=== PATIENT | male | born 1950 ===

== ENCOUNTER → 2019-01-10 | Outpatient (CLI) | payer OTHER, MEDICARE ==
[2019-01-10 16:40] LABS: ABG BASE EXCESS 0.1 MMOL/L (-2.5-2.5); ABG OXYGEN SATURATION 93 % (94-100); ABG PCO2 37 MMHG (35-45); ABG PH 7.42 (7.37-7.43); ABG PO2 69 MMHG (79-93); ABG TCO2 25.4 MMOL/L (21.0-31.0)
[2019-01-10 16:42] LABS: ALLENS TEST YES-POS; INSPIRED O2 RA; PATIENT TEMP 35.9; VENTILATOR NO
== END ==
LOC: LAB 16:04
PROVIDERS: ATTEND Nurse Practitioner Family
DX: J44.9 Chronic obstructive pulmonary disease, unspecified (principal); Z72.0 Tobacco use
CPT/HCPCS: 36600; 82805

== ENCOUNTER → 2019-04-01 | Outpatient (CLI) | payer MEDICARE, OTHER ==
[~2019-04-01] MED LIST: CATHETER FLUSH 10 ML SYR IV PRN; HOLD METFORMIN - RECEIVED CONTRAST 20 ML VIAL IV SCH; IOHEXOL 350 MG/ML 100 ML (OMNIPAQUE 350) VIAL IV ONE; NS 100 ML (IVPB) BAG IV ONE; RT-ALBUTEROL SULF 2.5 MG/3 ML PRE-MIX VIAL INH ONE; RT-ALBUTEROL SULF 2.5 MG/3 ML PRE-MIX VIAL ONE
[2019-04-01 11:35] LABS: BUN/CREATININE RATIO 16; CREATININE SERUM 1.05 MG/DL (0.60-1.30); GFR ESTIMATED > 60
--- NOTE | 2019-04-01 14:11 | Diagnostic Imaging Report ---
PROCEDURE: CT chest with contrast only. TECHNIQUE: Multiple contiguous axial images were obtained through the chest after administration of intravenous contrast. Auto Exposure Controls were utilized during the CT exam to meet ALARA standards for radiation dose reduction. INDICATION: Tobacco use, COPD. COMPARISON: None available. FINDINGS: No significant adenopathy within the chest. Mild scattered vascular calcifications. No aneurysmal dilatation of the thoracic aorta. The heart is within normal limits in size. No pericardial effusion. No pleural effusion. No pneumothorax. Moderate to advanced background emphysematous changes are present, greatest within the upper lobes. 1.5 cm irregular nodular density is noted within the left lung apex with additional nodularity within the left lung apex. 0.5 cm left lower lobe pulmonary nodule, axial image 32. 0.5 cm left lower lobe pulmonary nodule, axial image 44. 0.5 cm right upper lobe pulmonary nodule, axial image 37. 1.3 cm hypodensity is noted within the mid left kidney. Visualized upper abdomen is otherwise unremarkable. Scattered osseous degenerative changes without acute osseous abnormality. Large anterior osteophytes are noted throughout the spine. IMPRESSION: Advanced background emphysematous changes. Bilateral pulmonary nodules as described above, which are indeterminate. Dominant nodule within the left lung apex which is favored to relate to pleural parenchymal scarring, though follow-up is recommended. Therefore, follow-up is recommended with a CT of the chest in three months to ensure stability of the pulmonary nodularity. Left renal hypodensity, statistically, likely related to a cyst. Additional findings as above. Dictated by: Dictated on workstation # [id number]
== END ==
LOC: RT 10:53
PROVIDERS: ATTEND Nurse Practitioner Family
DX: J44.9 Chronic obstructive pulmonary disease, unspecified (principal); R91.8 Other nonspecific abnormal finding of lung field; Z72.0 Tobacco use
CPT/HCPCS: 36415; 71260; 82565; 84520; 94060; 94726; 94729

== ENCOUNTER → 2019-07-27 | Outpatient (CLI) | payer OTHER, MEDICARE ==
[~2019-07-27] MED LIST changes: -RT-ALBUTEROL SULF 2.5 MG/3 ML PRE-MIX VIAL INH ONE; -RT-ALBUTEROL SULF 2.5 MG/3 ML PRE-MIX VIAL ONE
[2019-07-27 15:27] LABS: BUN/CREATININE RATIO 18; CREATININE SERUM 1.01 MG/DL (0.60-1.30); GFR ESTIMATED > 60
--- NOTE | 2019-07-27 16:18 | Diagnostic Imaging Report ---
PROCEDURE: CT chest with contrast only. TECHNIQUE: Multiple contiguous axial images were obtained through the chest after administration of intravenous contrast. Auto Exposure Controls were utilized during the CT exam to meet ALARA standards for radiation dose reduction. INDICATION: Follow-up pulmonary nodule/micronodules. COMPARISON: 04/01/2019. FINDINGS: Evaluation of the lung [place] again demonstrates advanced emphysematous disease, bilaterally. Pleural-based irregular densities of the left apex are again identified and are stable. 4-5 mm micronodule within the superior segment of the left lower lobe is also stable (image 30, series 3). Slightly more inferior to this is an additional 6 mm micronodule. This too is stable (image 45, series 3). Finally, micronodule seen within the posterior margins of the right upper lobe on prior exam is again identified and is stable to slightly improved. It measures 3 mm (image 34, series 3). No new suspicious pulmonary nodule or mass is identified. There is no focal consolidation, large effusion or pneumothorax. Cardiomediastinal structures show normal heart size. There is no large pericardial effusion. No pathologically enlarged or morphologically abnormal adenopathy is seen within the mediastinum, janet or axilla. Note is made of mild calcified aortic and coronary atherosclerosis. Osseous structures show age-related degenerative changes. No lytic or blastic bony lesion is seen. Included portions of the upper abdomen show no new acute abnormality. IMPRESSION: 1. Stable bilateral pulmonary nodules. One-year follow-up is advised. 2. Background advanced emphysematous disease. 3. Background mild calcified aortic and coronary atherosclerosis. Dictated by: Dictated on workstation # [id number]
== END ==
LOC: RAD 14:55
PROVIDERS: ATTEND Nurse Practitioner Family
DX: Z01.812 Encounter for preprocedural laboratory examination (principal); R91.8 Other nonspecific abnormal finding of lung field; J43.9 Emphysema, unspecified; I25.10 Atherosclerotic heart disease of native coronary artery without angina pectoris
CPT/HCPCS: 36415; 71260; 82565; 84520

== ENCOUNTER → 2020-01-24 | Outpatient (CLI) | payer OTHER, MEDICARE ==
[2020-01-24 13:41] LABS: CREATININE SERUM 1.37 MG/DL (0.60-1.30)
--- NOTE | 2020-01-24 16:42 | Diagnostic Imaging Report ---
EXAMINATION: CT Chest with intravenous contrast. TECHNIQUE: Multiple contiguous axial images were obtained through the chest after the uneventful administration of intravenous contrast. All CT scans use one or more of the following dose optimizing techniques: automated exposure control, MA and/or KvP adjustment based on a patient size and exam type, or iterative reconstruction. HISTORY: Cough. COMPARISON: 08/13/2019. FINDINGS: There is no edema or pneumonia. No pleural effusion. No pneumothorax. There is a stable 4 mm left upper lobe pulmonary nodule. Lungs are severely emphysematous. There is mild scarring in the apices. No new pulmonary nodules are seen. There is no axillary or supraclavicular lymphadenopathy. There is no mediastinal lymphadenopathy. There is no prior circumflex artery territory infarct. Left ventricle is mildly dilated. There are mild coronary artery calcifications. No pericardial effusion. Aorta is normal in caliber. Limited views of the upper abdomen are unremarkable. There are no suspicious osseous lesions. IMPRESSION: 1. Stable pulmonary nodules, no suspicious nodules. No specific follow-up is needed, but the patient may benefit from lung cancer screening if they qualify. Dictated by: Dictated on workstation # [id number]
== END ==
LOC: RAD 12:50
PROVIDERS: ATTEND Nurse Practitioner Family
DX: J44.9 Chronic obstructive pulmonary disease, unspecified (principal); R91.8 Other nonspecific abnormal finding of lung field; Z72.0 Tobacco use
CPT/HCPCS: 36415; 71260; 82565; 84520

== ENCOUNTER → 2020-10-10 | Outpatient (CLI) | payer OTHER ==
[2020-10-10 15:49] LABS: CREATININE SERUM 0.96 MG/DL (0.60-1.30)
--- NOTE | 2020-10-10 16:36 | Diagnostic Imaging Report ---
EXAMINATION: CT chest with intravenous contrast. TECHNIQUE: Multiple contiguous axial images were obtained through the chest after the uneventful administration of intravenous contrast. All CT scans use one or more of the following dose optimizing techniques: automated exposure control, MA and/or KvP adjustment based on patient size and exam type or iterative reconstruction. HISTORY: Shortness of breath. COMPARISON: 01/24/2020 FINDINGS: There is no edema or pneumonia. No pleural effusion. No pneumothorax. There is a 3 mm nodule in the left apex. It is unchanged from prior exam. Lungs are severely emphysematous. There is scarring in the left apex. There is mucus in the trachea and the left mainstem bronchus. There is no axillary or supraclavicular lymphadenopathy. There is no mediastinal lymphadenopathy. Heart size is normal. There are mild coronary artery calcifications. No pericardial effusion. Aorta is normal in caliber. Limited views of the upper abdomen are unremarkable. There are no suspicious osseus lesions. IMPRESSION: 1. Severely emphysematous lungs with findings of chronic bronchitis. Dictated by: Dictated on workstation # [id number]
== END ==
LOC: RAD 16:45
PROVIDERS: ATTEND Nurse Practitioner Family
DX: J43.9 Emphysema, unspecified (principal); J42 Unspecified chronic bronchitis
CPT/HCPCS: 36415; 71260; 82565; 84520